=== PATIENT | male | born 1960 ===

== ENCOUNTER 2017-03-14 16:59 | Inpatient (IN) | payer OTHER ==
--- NOTE | 2017-03-14 17:21 | C.PDOC ---
History Of Present Illness 57 year old male presents for evaluation for a syncopal episode [employer]. Patient reports he was standing, smoking " all of a sudden I just passed out". Patient reports there were no witnesses, he states he tried to call his son but passed out before he could do so. Patient states he is compliant with his blood pressure medications. Patient denies CP, nausea, vomit, headache, no recent illness. Patient is asymptomatic at this moment. SYNCOPE [employer]. PS WAS STANDING, SMOKING "ALL OF A SUDDEN I JUST PASSED OUT". NO WITNESS. PS TRIED TO CALL SON BUT PASSED OUT BEFORE HE COULD. DENIES CP, NV, VIGIL. CURRENTLY ASYMPT. NO RECENT ILLNESS. COMPLIANT W BP MEDS EXAM NEG Time Seen by Provider: 03/14/17 17:17 Chief Complaint (Nursing): Syncope History Per: Patient History/Exam Limitations: no limitations Onset/Duration Of Symptoms: Hrs Current Symptoms Are (Timing): Gone Number Of Syncopal Episodes: 1 Activity At Onset Of Symptoms: Standing Associated Symptoms Preceding Syncopal Episode: No Predromal Symptoms (Sudden Onset) Seizure Or Post-ictal Symptoms: None Fall Associated With With Symptoms: No Severity: None Recent travel outside of the [place]: No Additional History Per: Patient Past Medical History Reviewed: Historical Data, Nursing Documentation, Vital Signs Vital Signs: Last Vital Signs Temp 98 F 03/14/17 17:02 Pulse 91 H 03/14/17 17:02 Resp 18 03/14/17 17:02 BP 117/76 03/14/17 17:02 Pulse Ox 99 03/14/17 18:56 - Medical History PMH: HTN, Hypercholesterolemia Surgical History: No Surg Hx Family History: States: Unknown Family Hx - Social History Hx Alcohol Use: Yes Hx Substance Use: No - Immunization History Hx Tetanus Toxoid Vaccination: No Hx Influenza Vaccination: No Hx Pneumococcal Vaccination: No Review Of Systems Constitutional: Negative for: Fever, Chills Eyes: Negative for: Vision Change Cardiovascular: Negative for: Chest Pain, Palpitations Respiratory: Negative for: Cough Gastrointestinal: Negative for: Nausea, Vomiting, Abdominal Pain Skin: Negative for: Rash Neurological: Positive for: Dizziness. Negative for: Weakness, Numbness, Headache Physical Exam - Physical Exam Appears: Non-toxic, No Acute Distress Skin: Normal Color, Warm, Dry Head: Atraumatic, Normacephalic Eye(s): bilateral: Normal Inspection Nose: Discharge, Deformity Oral Mucosa: Moist Neck: Normal ROM, Supple Chest: Symmetrical Cardiovascular: Rhythm Regular, No Murmur Respiratory: Normal Breath Sounds, No Rales, No Rhonchi, No Wheezing Gastrointestinal/Abdominal: Soft, No Tenderness, No Guarding, No Rebound Extremity: Normal ROM, No Deformity, No Swelling Neurological/Psych: Oriented x3, Normal Speech, Normal Cognition, Normal Motor, Normal Sensation Gait: Steady ED Course And Treatment - Laboratory Results Result Diagrams: 03/14/17 18:00 03/14/17 18:00 O2 Sat by Pulse Oximetry: 99 (On RA) Pulse Ox Interpretation: Normal - Radiology CXR: Interpreted by Nv CXR Interpretation: Yes: No Acute Disease - CT Scan/US CT head Other Rad Studies (CT/US): Read By Radiologist, Radiology Report Reviewed CT/US Interpretation: CT Scan. . . HEAD W/O CONTRAST Exam Date: 03/14/17. . This imaging exam was performed at [facility]. EXAM: CT Head Without Intravenous Contrast. . CLINICAL HISTORY: 57 years old, male; Signs and symptoms; Syncope and collapse. . TECHNIQUE: Axial computed tomography images of the head/brain without intravenous. contrast. All CT scans at this facility use one or more dose reduction. techniques, viz.: automated exposure control; ma/kV adjustment per patient size. (including targeted exams where dose is matched to indication; i.e. head) ; or. iterative reconstruction technique. Coronal and sagittal reformatted images were created and reviewed. . COMPARISON: No relevant prior studies available. . FINDINGS: Brain: Mild atrophy. No intracranial hemorrhage. No mass. Several. scattered small parenchymal calcifications. Mild gyral calcifications along. medial frontal lobes. No definite edema. Ventricles: No hydrocephalus. Bones/joints: No acute fracture. Soft tissues: Unremarkable. Vasculature: Minimal atherosclerotic disease of intracranial arteries. Sinuses: Scattered minimal to mild mucosal thickening. Mastoid air cells: No mastoid effusion. Orbits: Unremarkable as visualized. . IMPRESSION: 1. No definite acute intracranial abnormality. Acute infarction may be CT. occult within first 24 hours. If a focal deficit persists, consider followup. CT or MRI for further evaluation. 2. Incidental/non-acute findings are described above. Progress - Re-Evaluation Re-evaluation Note: 03/14/17 18:28 EXAM UNCH FROM [facility]IOR. PENDING CALLBACK DR HOLLAND C/F Ayanna FREEMAN 03/14/17 18:55 D/W DR HOLLAND AWARE OF ER FINDINGS. ADMIT UNDER Ayanna FREEMAN - Data Reviewed Data Reviewed: Lab, Diagnostic imaging, EKG, Old records - Continuity of Care Discussed patient case with:: Patient, Family-HIPPA compliant Medical Decision Making Medical Decision Making: Impression: syncope [employer] Plan: * Head CT * EKG * Labs * CXR Disposition Counseled Patient/Family Regarding: Studies Performed, Diagnosis - Disposition Disposition: HOSPITALIZED Disposition Time: 18:55 Condition: STABLE Forms: [employer] ([place]) - POA Present On Arrival: None - Clinical Impression Clinical Impression: Syncope - Scribe Statement The provider has reviewed the documentation as recorded by the Scribe Gerald Smith All medical record entries made by the Scribe were at my direction and personally dictated by me. I have reviewed the chart and agree that the record accurately reflects my personal performance of the history, physical exam, medical decision making, and the department course for this patient. I have also personally directed, reviewed, and agree with the discharge instructions and disposition. Physician Patient Turnover Patient Signed Over To: Josesito Tejeda Handoff Comments: FU DIMER Decision To Admit - Pt Status Changed To: Hospital Disposition Of: Observation - . Bed Request Type: Telemetry Admitting Physician: Jennifer Freeman Patient Diagnosis: Syncope
[2017-03-14 17:59] LABS: BASO % 0.4 % (0.0-2.0); EOS # 0.1 K/uL (0.0-0.7); EOS % 0.8 % (0.0-4.0); LYMPH # 2.5 K/uL (1.0-4.3); MEAN CELL VOLUME 94.9 fL (80.0-94.0); MEAN CORPUSCULAR HEMOGLOBIN 33.2 pg (27.0-31.0); MEAN PLATELET VOLUME 9.6 fL (7.2-11.7); MONO # 0.6 K/uL (0.0-0.8); NEUT % 60.8 % (50.0-75.0); RBC 4.22 Mil/uL (4.40-5.90); WHITE BLOOD COUNT 8.2 K/uL (4.8-10.8)
[2017-03-14 18:11] LABS: ALB/GLOB RATIO 1.4 (1.0-2.1); ALBUMIN 4.2 g/dL (3.5-5.0); ALT/SGPT 56 U/L (21-72); AST/SGOT 67 U/L (17-59); BLOOD UREA NITROGEN 14 mg/dL (9-20); CALCIUM 8.7 mg/dl (8.6-10.4); GFR AFRICAN-AMERICAN > 60; GFR NON-AFRICAN AMERICAN > 60
[2017-03-14 18:24] LABS: BARBITURATES, UR NEGATIVE (NEGATIVE); BENZODIAZEPINES, UR NEGATIVE (NEGATIVE); OPIATES, UR NEGATIVE (NEGATIVE); PHENCYCLIDINE, UR NEGATIVE (NEGATIVE)
--- NOTE | 2017-03-14 18:27 | CT ---
EXAM: CT Head Without Intravenous Contrast CLINICAL HISTORY: 57 years old, male; Signs and symptoms; Syncope and collapse TECHNIQUE: Axial computed tomography images of the head/brain without intravenous contrast. All CT scans at this facility use one or more dose reduction techniques, viz.: automated exposure control; ma/kV adjustment per patient size (including targeted exams where dose is matched to indication; i.e. head); or iterative reconstruction technique. Coronal and sagittal reformatted images were created and reviewed. COMPARISON: No relevant prior studies available. FINDINGS: Brain: Mild atrophy. No intracranial hemorrhage. No mass. Several scattered small parenchymal calcifications. Mild gyral calcifications along medial frontal lobes. No definite edema. Ventricles: No hydrocephalus. Bones/joints: No acute fracture. Soft tissues: Unremarkable. Vasculature: Minimal atherosclerotic disease of intracranial arteries. Sinuses: Scattered minimal to mild mucosal thickening. Mastoid air cells: No mastoid effusion. Orbits: Unremarkable as visualized. IMPRESSION: 1. No definite acute intracranial abnormality. Acute infarction may be CT occult within first 24 hours. If a focal deficit persists, consider followup CT or MRI for further evaluation. 2. Incidental/non-acute findings are described above.
[2017-03-14] MEDS ORDERED: Iodixanol 320 MG/ML 100 ML BOTTLE IV ONE (20:14)
--- NOTE | 2017-03-14 20:47 | CT ---
EXAM: CT Angiography Chest With Intravenous Contrast CLINICAL HISTORY: 57 years old, male; Signs and symptoms; Other: Elevated d-dimer; Additional info: Elevated d-dimer, syncope TECHNIQUE: Axial computed tomographic angiography images of the chest with intravenous contrast using pulmonary embolism protocol. All CT scans at this facility use one or more dose reduction techniques, viz.: automated exposure control; ma/kV adjustment per patient size (including targeted exams where dose is matched to indication; i.e. head); or iterative reconstruction technique. MIP reconstructed images were created and reviewed. Coronal and sagittal reformatted images were created and reviewed. CONTRAST: 100 mL of [id number] administered intravenously. COMPARISON: No relevant prior studies available. FINDINGS: Limitations: Motion artifact - mild. Pulmonary arteries: No definite pulmonary embolism. Aorta: Iudp-jn-dyysdaib atherosclerotic disease. No aneurysm. Lungs: Hyperinflation. Mild mosaic pattern of lung parenchyma, nonspecific. Minimal atelectasis. No consolidation. LEFT lower lobe calcified granuloma. Few pulmonary nodules, up to 0.2 cm. Pleural space: No significant effusion. No pneumothorax. Heart: No cardiomegaly. Trace focal pericardial effusion. Small focal pericardial effusion. Bones/joints: No acute fracture. Soft tissues: Mild asymmetric left gynecomastia. Lymph nodes: Calcified mediastinal and hilar lymph nodes. Liver: Small calcification. Spleen: Multiple calcifications. Kidneys and ureters: Few small renal calculi. IMPRESSION: 1. No definite CT evidence of pulmonary embolism. 2. Pulmonary nodules. For low-risk patients, no follow-up is necessary. For high-risk patients (smoking history or other known risk factors) an optional CT at 12 months could be performed. 3. Left gynecomastia. Clinical correlation is needed. 4. Incidental/non-acute findings are described above.
--- NOTE | 2017-03-15 09:43 | RAD ---
Chest x-ray two views History: Chest pain. Comparison: None available. Findings No focal infiltrate or effusion. Small nodular density at the left lung base represent small nodule and or granuloma and or small vessel on end. 3-6 month interval followup may be helpful to confirm stability. Tortuous aorta. Degenerative changes in spine and shoulders. Calcified nodes in the right hilar region. Impression: Small nodular density at the left lung base represent small nodule and or granuloma and or small vessel on end. 3-6 month interval followup may be helpful to confirm stability.
[2017-03-15] MEDS ORDERED: ICOSAPENT ETHYL PO SCH (10:00)
[2017-03-15] MEDS: Enoxaparin 40 mg Syringe SC SCH (10:40)
--- NOTE | 2017-03-15 12:16 | CARD ---
APPROVED REPORT EKG Measurement Heart [id number] <Conclusion> Normal sinus rhythm Normal ECG
--- NOTE | 2017-03-15 12:32 | CARD ---
APPROVED REPORT EXAM: Two-dimensional and M-mode echocardiogram with Doppler and color Doppler. Other Information Quality : Good[employer] : INDICATION Syncope M-Mode DIMENSIONS RVDd1.98 (2.1-3.2cm)Left Atrium (MM)3.40 (2.5-4.0cm) IVSd1.07 (0.7-1.1cm)Aortic Root3.12 (2.2-3.7cm) LVDd5.01 (4.0-5.6cm)Aortic Cusp Exc.1.53 (1.5-2.0cm) PWd0.91 (0.7-1.1cm)FS (%) 32 % LVDs3.42 (2.0-3.8cm)LVEF (%)60 (>50%) Mitral Valve MV E Txmtlchw27.3cm/sMV A Kuetqtgo90.0cm/sE/A ratio1.0 TDI E/Lateral E'0.0E/Medial E'0.0 Tricuspid Valve TR Peak Mtxqxikk151pq/sTR Peak Gr.[id number] LEFT VENTRICLE The left ventricle is normal size. There is normal left ventricular wall thickness. The left ventricular function is normal. The left ventricular ejection fraction is within the normal range. No regional wall motion abnormalities noted. The left ventricular diastolic function is normal. No left ventricle thrombus noted on this study. There is no ventricular septal defect visualized. There is no left ventricular aneurysm. There is no mass noted in the left ventricle. RIGHT VENTRICLE The right ventricle is normal size. There is normal right ventricular wall thickness. The right ventricular systolic function is normal. ATRIA The left atrium size is normal. The right atrium size is normal. The interatrial septum is intact with no evidence for an atrial septal defect. AORTIC VALVE The aortic valve is normal in structure and function. No aortic regurgitation is present. There is no aortic valvular stenosis. There is no aortic valvular vegetation. MITRAL VALVE The mitral valve is normal in structure and function. There is no evidence of mitral valve prolapse. There is no mitral valve stenosis. There is no mitral valve regurgitation noted. TRICUSPID VALVE The tricuspid valve is normal in structure and function. There is no tricuspid valve regurgitation noted. There is no tricuspid valve prolapse or vegetation. There is no tricuspid valve stenosis. PULMONIC VALVE The pulmonary valve is normal in structure and function. There is no pulmonic valvular regurgitation. There is no pulmonic valvular stenosis. GREAT VESSELS The aortic root is normal in size. The ascending aorta is normal in size. The pulmonary artery is normal. The IVC is normal in size and collapses >50% with inspiration. PERICARDIAL EFFUSION The pericardium appears normal. There is no pleural effusion. <Conclusion> The left ventricular function is normal. The left ventricular ejection fraction is within the normal range. No regional wall motion abnormalities noted.
--- NOTE | 2017-03-15 13:40 | VASCLAB ---
PROCEDURE: HISTORY: syncope COMPARISON: None available. TECHNIQUE: Grayscale and duplex Doppler evaluation of the cervical carotid and vertebral arteries were performed. The common carotid, carotid bifurcations and cervical Internal Carotid Artery (ICA) and proximal External Carotid Artery (ECA) were evaluated. The vertebral arteries were evaluated for gross patency and flow direction. Report prepared by VIDYA Vargas FINDINGS: RIGHT CAROTID ARTERIES: 1. Common Carotid Artery: No significant focal plaque formation of the right common carotid artery. Maximum Peak Systolic velocity: 68 cm/sec: End-diastolic velocity 12 cm/sec. 2. Carotid Bifurcation: plaque formation. Maximum Peak Systolic velocity: 61 cm/sec: End-diastolic velocity 10 cm/sec. 3. Internal Carotid Artery: Plaque description: 3.1. Proximal Segment: Peak systolic velocity 69 cm/sec: End-diastolic velocity 15 cm/sec - % stenosis 0-15% 3.2. Middle Segment: Peak systolic velocity 64 cm/sec: End-diastolic velocity 18 cm/sec - % stenosis 0-15% 3.3. Distal Segment: Peak systolic velocity 63 cm/sec: End-diastolic velocity 17 cm/sec - % stenosis 0-15% 4. External Carotid Artery: No significant focal plaque formation. Peak systolic velocity 106 cm/sec 5. ICA/CCA Ratio: 1.0 LEFT CAROTID ARTERIES: 1. Common Carotid Artery: No significant focal plaque formation of the left common carotid artery. Maximum Peak Systolic velocity: 52 cm/sec: End-diastolic velocity 14 cm/sec. 2. Carotid Bifurcation: plaque formation. Maximum Peak Systolic velocity: 45 cm/sec: End-diastolic velocity 11 cm/sec. 3. Internal Carotid Artery: Plaque description: 3.1. Proximal Segment: Peak systolic velocity 50 cm/sec: End-diastolic velocity 16 cm/sec - % stenosis 0-15% 3.2. Middle Segment: Peak systolic velocity 75 cm/sec: End-diastolic velocity 22 cm/sec - % stenosis 0-15% 3.3. Distal Segment: Peak systolic velocity 109 cm/sec: End-diastolic velocity 35 cm/sec - % stenosis 0-15% 4. External Carotid Artery: No significant focal plaque formation. Peak systolic velocity 102 cm/sec 5. ICA/CCA Ratio: 2.1 VERTEBRAL ARTERIES: 1. Right Vertebral Artery: The right vertebral artery flow direction is antegrade. 2. Left Vertebral Artery: The left vertebral artery flow direction is antegrade. OTHER FINDINGS: 1. Right Brachial Blood pressure: 130 mmHg. 2. Left Brachial Blood pressure: 130 mmHg. IMPRESSION: RIGHT: Duplex scan does not suggest hemodynamically significant stenosis of the right extracranial carotid arteries. LEFT: Duplex scan does not suggest hemodynamically significant stenosis of the left extracranial carotid arteries.
[2017-03-15] MEDS: Omega-3-Acid Ethyl Esters 1 GM Cap PO SCH (17:51)
--- NOTE | 2017-03-15 19:32 | CP.PCM.HP ---
Past Patient History - Past Social History Smoking Status: Light Smoker < 10 Cigarettes Daily - CARDIAC Hx Hypercholesterolemia: Yes Hx Hypertension: Yes - PSYCHIATRIC Hx Substance Use: No - SURGICAL HISTORY Hx Surgeries: No Meds Allergies/Adverse Reactions: Allergies Allergy/AdvReac Type Severity Reaction Status Date / Time No Known Allergies Allergy Verified 03/14/17 17:08 Physical Exam - Constitutional Appears: Well - Head Exam Head Exam: ATRAUMATIC, NORMAL INSPECTION, NORMOCEPHALIC - Eye Exam Eye Exam: EOMI, Normal appearance, PERRL Pupil Exam: NORMAL ACCOMODATION, PERRL - ENT Exam ENT Exam: Mucous Membranes Moist, Normal Exam - Neck Exam Neck exam: Positive for: Normal Inspection - Respiratory Exam Respiratory Exam: Decreased Breath Sounds - Cardiovascular Exam Cardiovascular Exam: REGULAR RHYTHM, +S1, +S2 - GI/Abdominal Exam GI & Abdominal Exam: Diminished Bowel Sounds, Soft - Rectal Exam Rectal Exam: Deferred Results - Vital Signs Recent Vital Signs: Last Vital Signs Temp 98.4 F 03/15/17 15:00 Pulse 104 H 03/15/17 15:30 Resp 20 03/15/17 15:00 BP 107/64 03/15/17 15:00 Pulse Ox 99 03/15/17 15:00 - Labs Result Diagrams: 03/14/17 18:00 03/14/17 18:00
--- NOTE | 2017-03-15 19:42 | CP.PCM.CON ---
History of Present Illness - History of Present Illness History of Present Illness: 57 year old male presents for evaluation for a syncopal episode. Patient reports he was standing, smoking " all of a sudden I just passed out". Patient reports there were no witnesses, he states he tried to call his son but passed out before he could do so. Patient states he is compliant with his blood pressure medications. Patient denies CP, nausea, vomit, headache, no recent illness. Patient is asymptomatic at this moment. Past Medical History Reviewed: Historical Data, Nursing Documentation, Vital Signs Vital Signs: - Medical History PMH: HTN, Hypercholesterolemia Surgical History: No Surg Hx Family History: States: Unknown Family Hx - Social History Hx Alcohol Use: Yes Hx Substance Use: No - Immunization History Hx Tetanus Toxoid Vaccination: No Hx Influenza Vaccination: No Hx Pneumococcal Vaccination: No Review Of Systems Constitutional: Negative for: Fever, Chills Eyes: Negative for: Vision Change Cardiovascular: Negative for: Chest Pain, Palpitations Respiratory: Negative for: Cough Gastrointestinal: Negative for: Nausea, Vomiting, Abdominal Pain Skin: Negative for: Rash Neurological: Positive for: Dizziness. Negative for: Weakness, Numbness, Headache Physical Exam - Physical Exam Appears: Non-toxic, No Acute Distress Skin: Normal Color, Warm, Dry Head: Atraumatic, Normacephalic Eye(s): bilateral: Normal Inspection Nose: Discharge, Deformity Oral Mucosa: Moist Neck: Normal ROM, Supple Chest: Symmetrical Cardiovascular: Rhythm Regular, No Murmur Respiratory: Normal Breath Sounds, No Rales, No Rhonchi, No Wheezing Gastrointestinal/Abdominal: Soft, No Tenderness, No Guarding, No Rebound Extremity: Normal ROM, No Deformity, No Swelling Neurological/Psych: Oriented x3, Normal Speech, Normal Cognition, Normal Motor, Normal Sensation Gait: Steady Past Patient History - Past Social History Smoking Status: Light Smoker < 10 Cigarettes Daily - CARDIAC Hx Hypercholesterolemia: Yes Hx Hypertension: Yes - PSYCHIATRIC Hx Substance Use: No - SURGICAL HISTORY Hx Surgeries: No Meds Allergies/Adverse Reactions: Allergies Allergy/AdvReac Type Severity Reaction Status Date / Time No Known Allergies Allergy Verified 03/14/17 17:08 - Medications Medications: Current Medications Amlodipine Besylate (Norvasc) 5 mg PO DAILY [facility] Last Admin: 03/15/17 10:40 Dose: 5 mg Aspirin (Ecotrin) 81 mg PO DAILY [facility] Last Admin: 03/15/17 10:40 Dose: 81 mg Enoxaparin Sodium (Lovenox) 40 mg SC DAILY [facility] Last Admin: 03/15/17 10:40 Dose: 40 mg Fenofibrate (Tricor) 145 mg PO DAILY [facility] Hydrochlorothiazide (Microzide) 12.5 mg PO DAILY [facility] Last Admin: 03/15/17 10:40 Dose: 12.5 mg Losartan Potassium (Cozaar) 50 mg PO DAILY [facility] Ltfrz-[id number] Ethyl Esters (Lovaza) 1 gm PO BID [facility] Last Admin: 03/15/17 17:51 Dose: 1 gm Rosuvastatin Calcium (Crestor) 40 mg PO HS [facility] Last Admin: 03/14/17 23:17 Dose: 40 mg Results - Vital Signs Recent Vital Signs: Last Vital Signs Temp 98.4 F 03/15/17 15:00 Pulse 104 H 03/15/17 15:30 Resp 20 03/15/17 15:00 BP 107/64 03/15/17 15:00 Pulse Ox 99 03/15/17 15:00 - Labs Result Diagrams: 03/14/17 18:00 03/14/17 18:00 Assessment & Plan - Assessment and Plan (Free Text) Assessment: Syncope: Etiology unclear Carotid and ECHO: Normal Will check stress test in am Event may be related to hypotension Decrease Losartan to 50mg po daily Recommend neuro evaluation
--- NOTE | 2017-03-16 07:17 | CP.PCM.CON ---
History of Present Illness - History of Present Illness History of Present Illness: JCONSULT DICTATED NEW SYNCOPE NO LONGTRACT SIGNS ?VBI/NON CONVULSIVE SEIZURE NO AED MRI/EEG NEEDS PSG/MSLT FOR SRBD Vs NARCOLEPSY WITH CATAPLEXY NO DRIVING UNTIL THE WORK UP IS COMPLETED Past Patient History - Past Social History Smoking Status: Light Smoker < 10 Cigarettes Daily - CARDIAC Hx Hypercholesterolemia: Yes Hx Hypertension: Yes - PSYCHIATRIC Hx Substance Use: No - SURGICAL HISTORY Hx Surgeries: No Meds Allergies/Adverse Reactions: Allergies Allergy/AdvReac Type Severity Reaction Status Date / Time No Known Allergies Allergy Verified 03/14/17 17:08 - Medications Medications: Current Medications Amlodipine Besylate (Norvasc) 5 mg PO DAILY [facility] Last Admin: 03/15/17 10:40 Dose: 5 mg Aspirin (Ecotrin) 81 mg PO DAILY [facility] Last Admin: 03/15/17 10:40 Dose: 81 mg Enoxaparin Sodium (Lovenox) 40 mg SC DAILY [facility] Last Admin: 03/15/17 10:40 Dose: 40 mg Fenofibrate (Tricor) 145 mg PO DAILY [facility] Hydrochlorothiazide (Microzide) 12.5 mg PO DAILY [facility] Last Admin: 03/15/17 10:40 Dose: 12.5 mg Losartan Potassium (Cozaar) 50 mg PO DAILY [facility] [id number]-[id number] Ethyl Esters (Lovaza) 1 gm PO BID [facility] Last Admin: 03/15/17 17:51 Dose: 1 gm Rosuvastatin Calcium (Crestor) 40 mg PO HS [facility] Last Admin: 03/15/17 22:12 Dose: 40 mg Results - Vital Signs Recent Vital Signs: Last Vital Signs Temp 98.5 F 03/15/17 23:45 Pulse 66 03/16/17 03:30 Resp 20 03/15/17 23:45 BP 123/72 03/15/17 23:45 Pulse Ox 98 03/15/17 23:45 - Labs Result Diagrams: 03/14/17 18:00 03/14/17 18:00
[2017-03-16 08:04] LABS: FREE T4 1.27 ng/dL (0.78-2.19)
[2017-03-16 08:27] LABS: HDL CHOLESTEROL 24 mg/dL (30-70)
[2017-03-16 08:40] LABS: LDL CHOLESTEROL < 30 mg/dL (0-129)
[2017-03-16 09:19] LABS: PROLACTIN 13.2 ng/mL (3.7-17.9)
--- NOTE | 2017-03-16 10:28 | CON ---
DATE: ATTENDING PHYSICIAN: Keri Freeman MD LOCATION: Room # 606, bed A. REASON FOR CONSULTATION: Loss of consciousness. CHIEF COMPLAINT: The patient was brought into [facility] with a history of syncopal attack while he was at home. From neurological point of view, I dairus was called in to evaluate him for further management. HISTORY OF PRESENTING ILLNESS: Mr. Sawyer Bustillo is a 57-year-old right-handed thinly built [place]-speaking male on Wednesday afternoon after his long time working, he had a nap around 3 to 4 o'clock at home he. He got out of the bed and he went out for smoking. On his way back home, at home the whole body went down, he was about to call his son prior to that he was on the floor. He was on the floor about 5-10 minutes as per his remembrance. No tonic-clonic activities being observed by anyone or himself. No bowel and bladder incontinence at the scene. No history of a bitten tongue. Following this episode, he got upon his own and he called his son then they decided to come to the hospital for further evaluation. No similar episodes happened in the past. He denies headache, no visual or bulbar dysfunction. No focal weakness. PAST MEDICAL HISTORY: Hypertension, dyslipidemia been on medication. PERSONAL HISTORY: He smokes as well as he drinks beer regularly. ALLERGIES: NO KNOWN ALLERGIES. REVIEW OF SYSTEMS: A 12-point system being reviewed from neuro, syncopal attack. MEDICATIONS: Cozaar, Crestor, Lovaza, Lovenox, Microzide, Norvasc and Tricor. PHYSICAL EXAMINATION: VITAL SIGNS: Blood pressure 123/72, mean arterial pressure of 89, respiratory rate 16, temperature 98.5, pulse rate 66 regular. NECK: Supple. No carotid bruit. HEART: Sounds are regular. CHEST: Fair air entry. EXTREMITIES: No edema in legs. NEUROLOGIC: Mental status examination: He is awake, alert, oriented to person, place and time. Speech is clear. Naming, repetition, fluency, comprehension all within normal. Significant retrograde amnesia. No antegrade amnesia. No confabulation, no hallucination, no suicidal ideation. Cranial nerve examination: Visual field intact. Pupils reactive to light. Extraocular movement normal. No nystagmus. No facial sensory deficit. No facial asymmetry. Hearing is normal. Tongue is midline. Good gag. Motor examination: Outstretched hand with eyes closed, no drift noted. No asterixis. Muscle strength is equal in all upper and lower extremities. Deep tendon reflexes: Biceps, brachialis, triceps 2+ on either side. Plantars are downgoing. Sensory examination: No cortical sensory loss. No extinction to double simultaneous stimuli. Coordination: Wwomch-qznj-xybtot test is intact. Gait is normal. WORKUP: CT of the head reviewed, no acute pathology is noted. BLOOD WORKUP: WBC 8.2, hemoglobin 14.0, hematocrit 40.1, platelets 221, D-dimer 3301. Sodium 132, potassium 3.6, chloride 96, bicarbonate 25 G, BUN 14, creatinine 0.8, GFR more than 60, random glucose 100, calcium 8.7, AST 67. Urine for tox screen negative. CONCLUSION: Mr. Sawyer Bustillo been presenting with as per neurologic examination new syncopal attack without any warning. This is probably from neurological point of view, vertebrobasilar insufficiency versus nonconvulsive seizures. However, from cardiac point of view, cardiac source should be ruled out. RECOMMENDATIONS: 1. MRI of the brain with and without gadolinium attention to medial temporal lobe to rule out any focal anomaly or atrophy of hippocampus should be ruled out. 2. No antiepileptic drugs for now. 3. The patient can continue aspirin, statin and angiotensin receptor andrei for now. 4. Abstinence from smoking as well as alcohol. 5. The patient should have a sleep related breathing disorder, should be studied including narcolepsy that can be done as outpatient. 6. The patient also scheduled to have a stress test as per pilot control operator helper which has been agreeable. 7. The patient will be followed closely while he is in the hospital, if medically stable, the patient can be followed by me as outpatient. Alon Rivero MD
[2017-03-16] MEDS: Enoxaparin 40 mg Syringe SC SCH (10:55)
[2017-03-16] MEDS: Omega-3-Acid Ethyl Esters 1 GM Cap PO SCH ×2 (10:59→17:49)
--- NOTE | 2017-03-16 16:39 | CP.PCM.PN ---
Subjective - Date & Time of Evaluation Date of Evaluation: 03/16/17 Time of Evaluation: 12:40 - Subjective Subjective: clinically same Objective - Vital Signs/Intake and Output Vital Signs (last 24 hours): Temp Pulse Resp BP Pulse Ox 98.2 F 89 20 109/66 98 03/16/17 15:18 03/16/17 15:30 03/16/17 15:18 03/16/17 15:18 03/16/17 15:18 Intake and Output: 03/16/17 03/16/17 06:59 18:59 Intake Total 280 Balance 280 - Medications Medications: Current Medications Amlodipine Besylate (Norvasc) 5 mg PO DAILY [facility] Last Admin: 03/16/17 10:55 Dose: 5 mg Aspirin (Ecotrin) 81 mg PO DAILY [facility] Last Admin: 03/16/17 10:55 Dose: 81 mg Enoxaparin Sodium (Lovenox) 40 mg SC DAILY [facility] Last Admin: 03/16/17 10:55 Dose: 40 mg Fenofibrate (Tricor) 145 mg PO DAILY [facility] Last Admin: 03/16/17 10:54 Dose: 145 mg Hydrochlorothiazide (Microzide) 12.5 mg PO DAILY [facility] Last Admin: 03/16/17 10:55 Dose: 12.5 mg Losartan Potassium (Cozaar) 50 mg PO DAILY [facility] Last Admin: 03/16/17 10:55 Dose: 50 mg Sappf-0-Rkrw Ethyl Esters (Lovaza) 1 gm PO BID [facility] Last Admin: 03/16/17 10:59 Dose: 1 gm Rosuvastatin Calcium (Crestor) 40 mg PO HS [facility] Last Admin: 03/15/17 22:12 Dose: 40 mg - Labs Labs: 03/14/17 18:00 03/14/17 18:00 - Constitutional Appears: Well - Head Exam Head Exam: ATRAUMATIC, NORMAL INSPECTION, NORMOCEPHALIC - Eye Exam Eye Exam: EOMI, Normal appearance, PERRL Pupil Exam: NORMAL ACCOMODATION, PERRL - ENT Exam ENT Exam: Mucous Membranes Moist, Normal Exam - Neck Exam Neck Exam: Full ROM, Normal Inspection. absent: Lymphadenopathy - Respiratory Exam Respiratory Exam: Decreased Breath Sounds - Cardiovascular Exam Cardiovascular Exam: REGULAR RHYTHM, +S1, +S2 - GI/Abdominal Exam GI & Abdominal Exam: Soft, Diminished Bowel Sounds - Rectal Exam Rectal Exam: Deferred
--- NOTE | 2017-03-16 17:34 | CP.PCM.PN ---
Subjective - Date & Time of Evaluation Date of Evaluation: 03/16/17 Time of Evaluation: 10:11 - Subjective Subjective: PGY 2 Medicine Note- Dr. Johnie Freeman's service Patient seen and examined in no apparent acute distress. Patient states that he was feeling lightheaded, cool and clammy the other day two days prior. He states that he took his blood pressure medications and then went about his day. At approx 11 am he took a nap and then awoke in a cold sweat. Patient states that he happened to look in the mirror at the time and noticed that his skin complexion was pale. Patient states that he did not have chest pain, palpitations, headache, nausea or vomiting at the time. He came to the hospital to be further evaluated. Today, patient is due for a stress test. he has no immediate complaints. He specifically denies subjective fevers or chills, nausea, vomiting, diarrhea or constipation at this time. PMHx- HTN, High cholesterol PSHx- denies FamHx- Unknown Meds- A blood pressure pill Social- Currently smokes 1 pack every two days. He has been smoking for 25-30 years; denies illicit drug use; admits to 3 beers socially a day Allergies- NKDA Objective - Vital Signs/Intake and Output Vital Signs (last 24 hours): Temp Pulse Resp BP Pulse Ox 98.2 F 89 20 109/66 98 03/16/17 15:18 03/16/17 15:30 03/16/17 15:18 03/16/17 15:18 03/16/17 15:18 Intake and Output: 03/16/17 03/16/17 06:59 18:59 Intake Total 280 Balance 280 - Medications Medications: Current Medications Amlodipine Besylate (Norvasc) 5 mg PO DAILY [facility] Last Admin: 03/16/17 10:55 Dose: 5 mg Aspirin (Ecotrin) 81 mg PO DAILY [facility] Last Admin: 03/16/17 10:55 Dose: 81 mg Enoxaparin Sodium (Lovenox) 40 mg SC DAILY [facility] Last Admin: 03/16/17 10:55 Dose: 40 mg Fenofibrate (Tricor) 145 mg PO DAILY [facility] Last Admin: 03/16/17 10:54 Dose: 145 mg Hydrochlorothiazide (Microzide) 12.5 mg PO DAILY [facility] Last Admin: 03/16/17 10:55 Dose: 12.5 mg Losartan Potassium (Cozaar) 50 mg PO DAILY [facility] Last Admin: 03/16/17 10:55 Dose: 50 mg Xusmk-3-Tfms Ethyl Esters (Lovaza) 1 gm PO BID [facility] Last Admin: 03/16/17 10:59 Dose: 1 gm Rosuvastatin Calcium (Crestor) 40 mg PO HS [facility] Last Admin: 03/15/17 22:12 Dose: 40 mg - Labs Labs: 03/14/17 18:00 03/14/17 18:00 - Constitutional Appears: Non-toxic, No Acute Distress - Head Exam Head Exam: ATRAUMATIC, NORMAL INSPECTION, NORMOCEPHALIC - Eye Exam Eye Exam: EOMI, Normal appearance, PERRL Pupil Exam: NORMAL ACCOMODATION - ENT Exam ENT Exam: Mucous Membranes Moist - Neck Exam Neck Exam: Full ROM - Respiratory Exam Respiratory Exam: NORMAL BREATHING PATTERN. absent: Wheezes - Cardiovascular Exam Cardiovascular Exam: +S1, +S2 - GI/Abdominal Exam GI & Abdominal Exam: Soft, Normal Bowel Sounds - Extremities Exam Extremities Exam: Full ROM - Back Exam Back Exam: NORMAL INSPECTION - Neurological Exam Neurological Exam: Alert, Awake, Oriented x3 - Psychiatric Exam Psychiatric exam: Normal Affect, Normal Mood - Skin Skin Exam: Dry, Intact, Normal Color, Warm Assessment and Plan (1) Syncope Assessment & Plan: Friction Saw Operator, Dr. Bar and Neurologist, Dr. Rivero on the case. F/U recommendations Patient for stress test 03/16/17- Normal stress test at this time. It is suspected that the etiology of patient's near-syncopal event is Neurologic Carotid and Doppler reports within normal limits- refer to complete reports. F/U MRI and EEG Per Neurology, Patient CANNOT drive until Neuro workup has been completed. Status: Acute (2) HTN (hypertension) Assessment & Plan: On Amlodipine, ASA, Losartan and HCTZ at this time Cont to monitor Status: Chronic (3) Elevated d-dimer Assessment & Plan: Elevated d-dimer Chest CT- no definite evidence of pulmonary embolism Pulm nodules noted which will require 12 month follow up. Status: Acute (4) Dyslipidemia Assessment & Plan: On Crestor, Lovaza and Tricor at this time Lipid Panel: T-258, Cholesterol 103 , LDL less than 30, HDL, 24 Diet counseling and exercise management warranted Status: Chronic (5) Tobacco use Assessment & Plan: Cessation counseling Patient may benefit from nicotine patch Status: Acute (6) Prophylactic measure Assessment & Plan: Lovenox 40 mg SC daily No indications for GI prophylaxis at this time Discussed with attending. Management and planning per Dr. Freeman Status: Acute
--- NOTE | 2017-03-16 18:20 | CP.PCM.PN ---
Subjective - Date & Time of Evaluation Date of Evaluation: 03/16/17 Time of Evaluation: 14:05 - Subjective Subjective: Patient seen and evaluated No new events Review Of Systems Constitutional: Negative for: Fever, Chills Eyes: Negative for: Vision Change Cardiovascular: Negative for: Chest Pain, Palpitations Respiratory: Negative for: Cough Gastrointestinal: Negative for: Nausea, Vomiting, Abdominal Pain Skin: Negative for: Rash Neurological: Positive for: Dizziness. Negative for: Weakness, Numbness, Headache Physical Exam - Physical Exam Appears: Non-toxic, No Acute Distress Skin: Normal Color, Warm, Dry Head: Atraumatic, Normacephalic Eye(s): bilateral: Normal Inspection Nose: Discharge, Deformity Oral Mucosa: Moist Neck: Normal ROM, Supple Chest: Symmetrical Cardiovascular: Rhythm Regular, No Murmur Respiratory: Normal Breath Sounds, No Rales, No Rhonchi, No Wheezing Gastrointestinal/Abdominal: Soft, No Tenderness, No Guarding, No Rebound Extremity: Normal ROM, No Deformity, No Swelling Neurological/Psych: Oriented x3, Normal Speech, Normal Cognition, Normal Motor, Normal Sensation Gait: Steady Objective - Vital Signs/Intake and Output Vital Signs (last 24 hours): Temp Pulse Resp BP Pulse Ox 98.2 F 89 20 109/66 98 03/16/17 15:18 03/16/17 15:30 03/16/17 15:18 03/16/17 15:18 03/16/17 15:18 Intake and Output: 03/16/17 03/16/17 06:59 18:59 Intake Total 280 Balance 280 - Medications Medications: Current Medications Amlodipine Besylate (Norvasc) 5 mg PO DAILY [facility] Last Admin: 03/16/17 10:55 Dose: 5 mg Aspirin (Ecotrin) 81 mg PO DAILY [facility] Last Admin: 03/16/17 10:55 Dose: 81 mg Enoxaparin Sodium (Lovenox) 40 mg SC DAILY [facility] Last Admin: 03/16/17 10:55 Dose: 40 mg Fenofibrate (Tricor) 145 mg PO DAILY [facility] Last Admin: 03/16/17 10:54 Dose: 145 mg Hydrochlorothiazide (Microzide) 12.5 mg PO DAILY [facility] Last Admin: 03/16/17 10:55 Dose: 12.5 mg Losartan Potassium (Cozaar) 50 mg PO DAILY [facility] Last Admin: 03/16/17 10:55 Dose: 50 mg Sdxae-9-Thoi Ethyl Esters (Lovaza) 1 gm PO BID [facility] Last Admin: 03/16/17 17:49 Dose: 1 gm Rosuvastatin Calcium (Crestor) 40 mg PO [facility] Last Admin: 03/15/17 22:12 Dose: 40 mg - Labs Labs: 03/14/17 18:00 03/14/17 18:00 Assessment and Plan - Assessment and Plan (Free Text) Assessment: Syncope: ECHO, EKG and Stress test normal Consult Dr. Farris for Tilt table test Neuro eval in progress
[2017-03-17 07:10] LABS: BASO % 0.3 % (0.0-2.0); EOS # 0.2 K/uL (0.0-0.7); EOS % 2.8 % (0.0-4.0); HEMOGLOBIN 13.4 g/dL (12.0-18.0); LYMPH # 2.8 K/uL (1.0-4.3); LYMPH % 35.7 % (20.0-40.0); MEAN CELL VOLUME 95.3 fL (80.0-94.0); MEAN CORPUSCULAR HEMOGLOBIN 33.5 pg (27.0-31.0); MEAN CORPUSCULAR HGB CONC 35.2 g/dL (33.0-37.0); MEAN PLATELET VOLUME 10.2 fL (7.2-11.7); MONO # 0.6 K/uL (0.0-0.8); MONO % 8.1 % (0.0-10.0); NEUT # 4.2 K/uL (1.8-7.0); NEUT % 53.1 % (50.0-75.0); NRBC % 0.1 % (0.0-2.0); RED CELL DISTRIBUTION WIDTH 13.6 % (11.5-14.5); WHITE BLOOD COUNT 7.8 K/uL (4.8-10.8)
[2017-03-17 07:31] LABS: ALB/GLOB RATIO 1.3 (1.0-2.1); ALBUMIN 3.7 g/dL (3.5-5.0); ALT/SGPT 53 U/L (21-72); AST/SGOT 62 U/L (17-59); BLOOD UREA NITROGEN 11 mg/dL (9-20); GFR AFRICAN-AMERICAN > 60; GFR NON-AFRICAN AMERICAN > 60; MAGNESIUM 1.9 mg/dL (1.6-2.3)
--- NOTE | 2017-03-17 08:40 | CARD ---
APPROVED REPORT EXAM: Myocardial Perfusion STRESS/REST Imaging Protocol The imaging protocol used to acquire images was Stress Tc-99m/rest Tc-99m 1 day Stress Spect myocardial perfusion imaging was performed in supine position 41 minutes following the injection of 13.1 mCi of Tc-99 Myoview. Gated Rest Spect was performed 40 minutes after intravenous 32.7 mCi Tc-99 Myoview injection. The images were gated to evaluate regional wall motion and calculate ventricular ejection fraction.Images were reconstructed using backfilter projection method in short horizontal and verticle long axis. Spect slices were generated. RESTING DATA EDV61.51amUO5.60L/min ESV16.00mlMyocardial Urra130.00g Av. Heart Rate80.00bpm EF74.00% STRESS DATA EDV53.98geTQ7.00L/min ESV8.00mlMyocardial Urla198.00g EF85.00% Regional WT score at stress:2.00 Regional WM score at stress:0.00 Summed WT score at stress:5.00 Av. Heart Rate88.00bpmSummed WM score at stress:0.00 LV Perf. Quant 17 Seg. SSS0.00 17 Seg. SRS1.00 17 Seg. SDS0.00 Stress Defect Extent (% LAD)1.90Rest Defect Extent (% LAD)0.00Rev. Defect Extent (% LAD)0.00 Stress Defect Extent (% LCX)1.30Rest Defect Extent (% LCX)0.00Rev. Defect Extent (% LCX)0.00 Stress Defect Extent (% RCA)0.00Rest Defect Extent (% RCA)2.20Rev. Defect Extent (% RCA)0.00 Stress Defect Extent (% MARÍA)2.80Rest Defect Extent (% MARÍA)2.20Rev. Defect Extent (% MARÍA)0.00 Left Ventricle LV Size/Shape: The left ventricle is normal size. LV Function:Left ventricle systolic function is normal. The Ejection Fraction is >70%. Regional Wall Motion:There is normal left ventricular wall motion. Metabolism/Perfusion Defects: There is no scan evidence of reversible ischemia noted. Conclusion 1. There is no scan evidence of reversible ischemia noted. 2. Left ventricle systolic function is normal. 3. The Ejection Fraction is >70%.
[2017-03-17] MEDS: Enoxaparin 40 mg Syringe SC SCH (10:33)
[2017-03-17] MEDS: Omega-3-Acid Ethyl Esters 1 GM Cap PO SCH (10:33)
[2017-03-17] MEDS ORDERED: Gadodiamide 287 mg/ml 20 ml IV ONE (11:20)
--- NOTE | 2017-03-17 12:02 | CP.PCM.PN ---
Subjective - Date & Time of Evaluation Date of Evaluation: 03/17/17 Time of Evaluation: 11:49 - Subjective Subjective: PGY2 progress note for Dr. Freeman Pt seen and examined at bedside. No acute events overnight. Objective - Vital Signs/Intake and Output Vital Signs (last 24 hours): Temp Pulse Resp BP Pulse Ox 98.8 F 83 18 132/84 97 03/17/17 08:37 03/17/17 10:25 03/17/17 08:37 03/17/17 10:25 03/17/17 08:37 - Medications Medications: Current Medications Amlodipine Besylate (Norvasc) 5 mg PO DAILY [facility] Last Admin: 03/17/17 10:33 Dose: 5 mg Aspirin (Ecotrin) 81 mg PO DAILY [facility] Last Admin: 03/17/17 10:33 Dose: 81 mg Enoxaparin Sodium (Lovenox) 40 mg SC DAILY [facility] Last Admin: 03/17/17 10:33 Dose: 40 mg Fenofibrate (Tricor) 145 mg PO DAILY [facility] Last Admin: 03/17/17 10:33 Dose: 145 mg Hydrochlorothiazide (Microzide) 12.5 mg PO DAILY [facility] Last Admin: 03/17/17 10:33 Dose: 12.5 mg Losartan Potassium (Cozaar) 50 mg PO DAILY [facility] Last Admin: 03/17/17 10:33 Dose: 50 mg Jxhcb-0-Jcci Ethyl Esters (Lovaza) 1 gm PO BID [facility] Last Admin: 03/17/17 10:33 Dose: 1 gm Rosuvastatin Calcium (Crestor) 40 mg PO HS [facility] Last Admin: 03/16/17 22:09 Dose: 40 mg - Labs Labs: 03/17/17 06:59 03/17/17 06:59 - Constitutional Appears: Non-toxic, No Acute Distress - Head Exam Head Exam: ATRAUMATIC, NORMOCEPHALIC - ENT Exam ENT Exam: Mucous Membranes Moist - Respiratory Exam Respiratory Exam: Clear to Ausculation Bilateral. absent: Accessory Muscle Use , Rales, Rhonchi, Wheezes, Respiratory Distress - Cardiovascular Exam Cardiovascular Exam: REGULAR RHYTHM, +S1, +S2 - GI/Abdominal Exam GI & Abdominal Exam: Soft, Normal Bowel Sounds. absent: Distended, Firm, Guarding, Rigid, Tenderness, Organomegaly - Extremities Exam Extremities Exam: absent: Pedal Edema, Tenderness - Neurological Exam Neurological Exam: Alert, Awake, Oriented x3 - Psychiatric Exam Psychiatric exam: Normal Affect, Normal Mood - Skin Skin Exam: Dry, Intact, Normal Color, Warm Assessment and Plan - Assessment and Plan (Free Text) Assessment: (1) Syncope Flight Hostess, Dr. Bar and Neurologist, Dr. Rivero on the case. F/U recommendations Stress test done yesterday was normal It is suspected that the etiology of patient's near-syncopal event is Neurologic Carotic doppler was negative Per Neurology, Patient CANNOT drive until Neuro workup has been completed. Pt had MRI of brain this morning. Results pending EEG ordered. Results pending (2) HTN (hypertension) On Amlodipine, ASA, Losartan and HCTZ at this time Cont to monitor (3) Elevated d-dimer Elevated d-dimer Chest CT- no definite evidence of pulmonary embolism Pulm nodules noted which will require 12 month follow up. (4) Dyslipidemia On Crestor, Lovaza and Tricor at this time Lipid Panel: T-258, Cholesterol 103 , LDL less than 30, HDL, 24 Diet counseling and exercise management warranted (5) Tobacco use Cessation counseling Patient may benefit from nicotine patch (6) Prophylactic measure Lovenox 40 mg SC daily Pepcid 20 mg po qd Discussed with attending. Management and planning per Dr. Freeman
--- NOTE | 2017-03-17 12:57 | MRI ---
PROCEDURE: MRI BRAIN WITH AND WITHOUT CONTRAST HISTORY: Song PROTOCOL -ATTEN: MESIAL TEMP LOBE COMPARISON: Noncontrast head CT from 03/14/2017 TECHNIQUE: Multiplanar, multisequence MR images of the brain were obtained with and without intravenous contrast enhancement. 11 mL Omniscan was injected intravenously. FINDINGS: HEMORRHAGE: None DWI: No evidence of an acute or early subacute infarction. 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 There are multifocal T2/FLAIR hyperintensities in the subcortical and periventricular white matter. There is no mass, mass effect or abnormal extra-axial fluid collection. There is significant atrophy and volume loss in the rostrum, genu and anterior body of the corpus callosal. The hippocampi by are symmetric with normal architecture and signal intensity. There is no evidence of mesial temporal sclerosis, abnormal enhancement or mass. ENHANCEMENT: No abnormal intracranial enhancement. VENTRICLES: There is mild age-related global parenchymal volume loss and proportionate enlargement of the ventricles and cortical sulci. CRANIUM: There is normal bone marrow signal pattern. ORBITS: Grossly unremarkable. PARANASAL SINUSES/MASTOIDS: There are retention cysts/ polyps in the right maxillary sinus. The remaining included paranasal sinuses and mastoid air cells are clear. VASCULAR SYSTEM: There are normal signal voids in the larger intracranial arteries. OTHER FINDINGS: None . IMPRESSION: 1. No acute intracranial abnormality. No evidence of mesial temporal sclerosis. 2. Multifocal subcortical and periventricular white matter changes are strictly nonspecific. The differential considerations include early chronic microangiopathic changes, migraine headache effect, gliosis, demyelinating disease including multiple sclerosis amongst others. 3. Mild age-related global parenchymal volume loss.
--- NOTE | 2017-03-17 13:01 | CP.PCM.PN ---
Subjective - Date & Time of Evaluation Date of Evaluation: 03/17/17 Time of Evaluation: 10:40 - Subjective Subjective: clinically same Objective - Vital Signs/Intake and Output Vital Signs (last 24 hours): Temp Pulse Resp BP Pulse Ox 98.8 F 83 18 132/84 97 03/17/17 08:37 03/17/17 10:25 03/17/17 08:37 03/17/17 10:25 03/17/17 08:37 - Medications Medications: Current Medications Amlodipine Besylate (Norvasc) 5 mg PO DAILY [facility] Last Admin: 03/17/17 10:33 Dose: 5 mg Aspirin (Ecotrin) 81 mg PO DAILY [facility] Last Admin: 03/17/17 10:33 Dose: 81 mg Enoxaparin Sodium (Lovenox) 40 mg SC DAILY [facility] Last Admin: 03/17/17 10:33 Dose: 40 mg Famotidine (Pepcid) 20 mg PO DAILY [facility] Last Admin: 03/17/17 12:57 Dose: 20 mg Fenofibrate (Tricor) 145 mg PO DAILY [facility] Last Admin: 03/17/17 10:33 Dose: 145 mg Hydrochlorothiazide (Microzide) 12.5 mg PO DAILY [facility] Last Admin: 03/17/17 10:33 Dose: 12.5 mg Losartan Potassium (Cozaar) 50 mg PO DAILY [facility] Last Admin: 03/17/17 10:33 Dose: 50 mg Vbtkg-5-Svlb Ethyl Esters (Lovaza) 1 gm PO BID [facility] Last Admin: 03/17/17 10:33 Dose: 1 gm Rosuvastatin Calcium (Crestor) 40 mg PO HS [facility] Last Admin: 03/16/17 22:09 Dose: 40 mg - Labs Labs: 03/17/17 06:59 03/17/17 06:59 - Constitutional Appears: Well - Head Exam Head Exam: ATRAUMATIC, NORMAL INSPECTION, NORMOCEPHALIC - Eye Exam Eye Exam: EOMI, Normal appearance, PERRL Pupil Exam: NORMAL ACCOMODATION, PERRL - ENT Exam ENT Exam: Mucous Membranes Moist, Normal Exam - Neck Exam Neck Exam: Full ROM, Normal Inspection. absent: Lymphadenopathy - Respiratory Exam Respiratory Exam: Decreased Breath Sounds - Cardiovascular Exam Cardiovascular Exam: REGULAR RHYTHM, +S1, +S2 - GI/Abdominal Exam GI & Abdominal Exam: Soft, Diminished Bowel Sounds - Rectal Exam Rectal Exam: Deferred
[2017-03-17 16:16] VITALS: BP 113/72; PULSE 84; RESP 20; TEMP 98.7; O2SAT 99
--- NOTE | 2017-03-18 07:39 | PROCN ---
DATE: 03/17/2017 TILT TABLE TEST REFERRING PHYSICIAN: Keri Freeman MD INDICATIONS: Syncope. PROCEDURE: The patient was put on the table and the test was done at 30 degrees for 5 minutes and 60 degrees for 15 minutes. The patient tolerated the procedure well. IMPRESSION: Appropriate heart rate and blood pressure response to tilt table test. The patient completed the test without any symptoms. Tc Farris MD
== END 2017-03-17 18:22 | disposition home or self-care (01) | DRG 101 ==
LOC: C.ER 16:59 → C.9E 18:56 → C.6T 23:41 → OBSVTOIN 03-15 09:22
PROVIDERS: ADMIT Internal Medicine Nephrology; ATTEND Internal Medicine Nephrology
DX: G40.89 Other seizures (principal); E78.00 Pure hypercholesterolemia, unspecified; F17.210 Nicotine dependence, cigarettes, uncomplicated; R55 Syncope and collapse; I10 Essential (primary) hypertension